=== PATIENT | male | born 1945 | race Two or more races ===

== ENCOUNTER 2023-06-29 12:36 | Emergency (ER) | payer OTHER ==
[~2023-06-29] VITALS: Ht 162.6 cm; Wt 72.6 kg
[2023-06-29 15:14] LABS: ABG PH 7.413 (7.35-7.45); ABG pCO2 38.4 mmHg (35-45); BASE EXCESS -0.4 mmol/l; BICARBONATE 23.9 mmol/l (23-25); SaO2 94.8 %; Tco2 25.1 mmol/l
[2023-06-29 15:15] LABS: allen test SATISFACTORY; o2 21 %; puncture site RADIAL LEFT
[2023-06-29 15:35] LABS: HEMATOCRIT 29.4 % (39.0-48.0); HEMOGLOBIN 9.6 g/dL (13-16.00); MEAN CELL VOLUME 74.8 fL (80.0-100.00); MEAN CORPUSCULAR HEMOGLOBIN 24.4 pg (27.00-32.0); MEAN CORPUSCULAR HGB CONC 32.6 g/dl (32.0-36.0); PLATELET COUNT 180 K/uL (150-450); RED BLOOD COUNT 3.93 M/uL (4.00-6.00); RED CELL DISTRIBUTION WIDTH 18.2 % (11.5-14.5)
[2023-06-29 15:58] LABS: ALBUMIN 3.2 gm/dL (3.4-5.0); BILIRUBIN TOTAL 0.3 mg/dL (0.3-1.2); CALCIUM 9.3 mg/dL (8.5-10.1); CREATININE SERUM 1.84 mg/dL (0.70-1.30); GFR 36.04; GLOBULINA 3.6 G/DL (2.4-3.5); POTASSIUM 4.14 mEq/L (3.5-5.1); TOTAL PROTEIN 6.8 gm/dL (6.4-8.2)
== END 2023-06-29 17:00 | disposition home or self-care (01) ==
LOC: ER 12:37
PROVIDERS: General Practice
DX: B34.9 Viral infection, unspecified (principal); E11.9 Type 2 diabetes mellitus without complications; I10 Essential (primary) hypertension; Z79.84 Long term (current) use of oral hypoglycemic drugs

== ENCOUNTER 2023-12-18 14:47 | Emergency (ER) | payer OTHER ==
[~2023-12-18] VITALS: Ht 162.6 cm; Wt 72.6 kg
== END 2023-12-18 19:33 | disposition home or self-care (01) ==
LOC: ER 14:48
DX: I10 Essential (primary) hypertension (principal)

== ENCOUNTER → 2024-09-29 | Emergency (ER) | payer OTHER | END | disposition home or self-care (01) | LOC: ER 10:06 | DX: R19.7 Diarrhea, unspecified (principal); E11.9 Type 2 diabetes mellitus without complications; Z79.84 Long term (current) use of oral hypoglycemic drugs; I10 Essential (primary) hypertension ==